=== PATIENT | male | born 1980 | race Hispanic/Latino ===

== ENCOUNTER 2018-04-22 08:10 | Emergency (ER) | payer SELFPAY ==
[2018-04-22 08:26] VITALS: BP 143/82
[2018-04-22] MEDS ORDERED: TOBRADEX OU ONE (08:31)
[2018-04-22] MEDS ORDERED: TETRACAINE 0.5% OU ONE (08:32)
[2018-04-22] MEDS ORDERED: ZITHROMAX PO ONE (08:33)
--- NOTE | 2018-04-22 08:34 | Emergency Department Report ---
Eye Injury/Foreign Body - HPI Duration: 5 Days Eye Location: Right Severity: Mild Tetanus Status: Up to Date Eye Symptoms: Eye Pain: No, Blurred Vision: No, Eye Redness: Yes, Grinding/Hammering Metal: No, Used Eye Protection: No, Contact Lens Use: No, Recalls Injury: No Other History: Patient is a 37-year-old male who comes in with right eye redness and swelling for several days. There's been no trauma. 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 He states that the eye is matted over when he wakes up in the morning. No fever or recent upper respiratory tract infection. No past medical history. ED Review of Systems ROS: Stated complaint: SWOLLEN RT EYE/INFECTION Other details as noted in HPI Comment: All other systems reviewed and negative Constitutional: denies: chills, fever Eyes: as per HPI, eye discharge. denies: eye pain, vision change ENT: denies: ear pain, throat pain Respiratory: denies: cough Cardiovascular: denies: chest pain Endocrine: denies: excessive sweating Gastrointestinal: denies: abdominal pain Genitourinary: denies: urgency Musculoskeletal: denies: back pain Skin: denies: rash Neurological: denies: headache Psychiatric: denies: depression ED Past Medical Hx - Past Medical History Previous Medical History?: No - Surgical History Past Surgical History?: Yes Additional Surgical History: Ear surgeries as a child - Social History Smoking Status: Current Every Day Smoker Substance Use Type: Marijuana - Medications Home Medications: Home Medications Medication Instructions Recorded Confirmed Last Taken Type RX: Azithromycin [Zithromax TAB] 500 mg PO QDAY #4 tablet 04/22/18 Unknown Rx Eye Injury Exam - Exam General: Vital signs noted. No distress. Alert and acting appropriately. - Visual Acuity Left Vision Acuity Degree: 20/50 Eye Exam: Right Purulent Discharge, Both EOMI, Neither Injection, Neither Chemosis, Neither Abnormal Pupil, Neither Eye Foreign Body, Neither Lid Foreign Body, Neither Mucous Discharge, Neither Fluorescein Uptake, Neither Fluorescein Uptake (slit lamp), Neither Cell/Flare (slit lamp), Neither Corneal Edema, Neither Photophobia Right Vision Acuity Degree: 20/50 ED Course Vital Signs 04/22/18 08:23 Temperature 98.8 F Pulse Rate 83 Respiratory 16 Rate Blood Pressure 143/82 O2 Sat by Pulse 100 Oximetry ED Medical Decision Making - Medical Decision Making no trauma globe intact no change in vision eye matted shut in am no recent urti no fever non toxic Critical care attestation.: If time is entered above; I have spent that time in minutes in the direct care of this critically ill patient, excluding procedure time. ED Disposition Clinical Impression: Conjunctivitis, Periorbital swelling Disposition: TO HOME OR SELFCARE Is pt being admited?: No Does the pt Need Aspirin: No Condition: Stable Instructions: Conjunctivitis (ED) Additional Instructions: ICE MEDS ORDERED TODAY IF PERSISTS FOLLOW UP WITH OPTHAMOLOGY REFERRAL BELOW MOTRIN OR TYLENOL FOR PAIN Prescriptions: RX: Azithromycin [Zithromax TAB] 500 mg PO QDAY #4 tablet Referrals: CAMILO POST DO [Staff Physician] - 3-5 Days Time of Disposition: 08:36
[2018-04-22] MEDS ORDERED: IBUPROFEN PO ONE (08:37)
== END 2018-04-22 08:58 | disposition home or self-care (01) ==
LOC: ED 08:10
DX: H10.9 Unspecified conjunctivitis (principal); F17.200 Nicotine dependence, unspecified, uncomplicated; F12.10 Cannabis abuse, uncomplicated
CPT/HCPCS: 99282